=== PATIENT | female | born 2000 | race American Indian/Alaskan Native ===

== ENCOUNTER 2021-09-13 06:01 | Day surgery (SDC) | payer MEDICAID, OTHER ==
[~2021-09-13 06:01] MED LIST: LACTATED RINGERS 1,000 ML IV SCH; MIDAZOLAM 2 MG/2 ML INJ IV NR
--- NOTE | 2021-09-13 06:59 | Short Stay Summary ---
Short Stay Documentation Date of service: 09/13/21 Narrative H&P: Pt is a 20 year old G0 female who presents for treatment of hsil on colposcopy. Pt has a history of recently onset diabetes. - History Principal diagnosis: HSIL H&P: obtained from office Past Medical History: diabetes Social history: single - Allergies and Medications Current Medications: Allergies No Known Allergies Allergy (Unverified 09/09/21 07:39) Home Medications Medication Instructions Recorded Confirmed Last Taken Type metFORMIN [Glucophage] 850 mg PO DAILY 09/09/21 09/13/21 09/11/21 History Active Medications Lactated Ringer's (Lactated Ringers) 1,000 mls @ 100 mls/hr IV DIRECT EDVIN Stop: 09/13/21 23:59 Last Admin: 09/13/21 06:30 Dose: 100 mls/hr Documented by: Midazolam HCl (Midazolam 2 Mg/2 Ml Inj) 2 mg IV PREOP NR Stop: 09/13/21 23:59 - Physical exam General appearance: no acute distress Integumentary: no rash Lungs: Clear to auscultation, Normal air movement Breasts: deferred Heart: Regular rate, Normal S1, Normal S2 Gastrointestinal: normal, normoactive bowel sounds Female Genitourinary: deferred Rectal Exam: deferred Extremities: no ischemia - Brief post op/procedure progress note Date of procedure: 09/13/21 Pre-op diagnosis: High-grade cervical dysplasia Post-op diagnosis: same Procedure: Cold knife biopsy Anesthesia: MAC Findings: Small nulliparous cervix with areas of abnormality just adjacent to os at the 6:00 position Surgeon: DAIJA AMARAL Estimated blood loss: minimal Pathology: list (Cervical biopsy) Specimen disposition: to lab - Hospital course Hospital course: Unremarkable - Disposition Condition at discharge: Stable Disposition: 01 HOME / SELF CARE / HOMELESS Short Stay Discharge Plan Activity: advance as tolerated Weight Bearing Status: Weight Bear as Tolerated Diet: regular Follow up with: DEWEY ALEJANDRO MD [Primary Care Provider] - 7 Days DAIJA AMARAL MD [Staff Physician] - 14 Days Prescriptions: Ibuprofen [Motrin] 800 mg PO Q8HR PRN #30 tablet PRN Reason: Pain, Mild (1-3) HYDROcodone/APAP 5-325 [[place] 5/325] 2 each PO Q6H PRN #30 tablet PRN Reason: Pain
--- NOTE | 2021-09-13 07:32 | Anesthesia Consultation ---
Anesthesia Consult and Med Hx Date of service: 09/13/21 - Airway Anesthetic Teeth Evaluation: Good ROM Head & Neck: Adequate Mental/Hyoid Distance: Adequate Mallampati Class: Class I Intubation Access Assessment: Probably Good - Pre-Operative Health Status ASA Pre-Surgery Classification: ASA2 Proposed Anesthetic Plan: General - Pulmonary Hx Smoking: No Hx Respiratory Symptoms: No - Cardiovascular System Hx Hypertension: No - Central Nervous System CVA: No - Endocrine Hx Renal Disease: No Hx Liver Disease: No Hx Non-Insulin Dependent Diabetes: Yes Hx Thyroid Disease: No - Other Systems Hx Obesity: Yes - Additional Comments Anesthesia Medical History Comments: No hx anesthetic complications.
--- NOTE | 2021-09-13 07:33 | Anesthesia Day of Surgery ---
Anesthesia Day of Surgery - Day of Surgery Patient Examined: Yes Patient H&P Reviewed: Yes Patient is NPO: Yes
[2021-09-13] MEDS ORDERED: POTASSIUM IODIDE/IODINE (LUGOLS) 30 ML TP ONE ×2 (07:35→08:41)
[2021-09-13] MEDS ORDERED: FERRIC SUBSULFATE TOPICAL SOLN 8 ML TP ONE (07:36)
[2021-09-13] MEDS ORDERED: propofoL 200 MG/20 ML VIAL IV ONE (08:12)
[2021-09-13] MEDS ORDERED: fentaNYL 100 MCG/2 ML INJ ONE (08:17)
[2021-09-13] MEDS ORDERED: dexAMETHasone 20 MG/5 ML VIAL ONE (08:19)
[2021-09-13] MEDS ORDERED: LIDOCAINE MPF (2%) 20 MG/1 ML VIAL 5 ML ONE (08:19)
[2021-09-13] MEDS ORDERED: KETOROLAC 30 MG/1 ML INJ ONE (08:19)
[2021-09-13] MEDS ORDERED: ONDANSETRON 4 MG/2 ML INJ ONE (08:19)
[2021-09-13] MEDS ORDERED: SODIUM CHLORIDE 0.9% IRR 1,500 ML BOTTLE IR ONE (08:41)
[2021-09-13] MEDS ORDERED: HYDROmorphone 1 MG/1 ML INJ ONE (09:17)
[2021-09-13] MEDS ORDERED: ONDANSETRON 4 MG/2 ML INJ IV PRN (09:24)
[2021-09-13] MEDS: HYDROmorphone 1 MG/1 ML INJ IV PRN ×2 (09:29→09:44)
--- NOTE | 2021-09-13 09:33 | Operative Report ---
Operative Report Operative Report: Pre Op Diagnosis: High-grade intraepithelial dysplasia Post Op Diagnosis: Same Procedure: Cold knife biopsy Surgeon: Kayla Guy MD EBL: Minimal IVF: 800 cc Urine output: 150 clear to beginning the procedure Specimen: Cervical biopsy Complications: None Procedure: The patient returned to the OR with IV running and in place. She was given general anesthesia without difficulty. She was then placed in dorsolithotomy position and prepped and draped in normal sterile fashion. Her bladder was drained approximately 100 cc of clear yellow urine. Attention was then turned to the patient's vagina. A bivalve speculum placed in the vagina, the uterus was then identified and grasped with single-tooth tenaculum. Lugol's solution was then applied to the cervix. Areas of highlighted included the cervical os and a small area just at the 6 o'clock position. Cervix appeared to be nulliparous and was small. The wire devices were all too large to use on the cervix without causing significant damage therefore decision was made to do a knife biopsy using the scalpel. Sutures of 0 Vicryl were placed at the 3 and 9 o'clock position on the external os assist and hemostasis. A Sandra area was carried out of the central's using the 11 blade. An Allis was used to remove the actual portions of cervix that had been detached. These portions were then prepared to be sent to recovery. The base of the excision was then cauterized with the rollerball Bovie. There was excellent hemostasis at the end of this portion of the procedure. At this point all instruments the patient's vagina. She was then awakened and taken recovery in stable condition. The sponge and instrument counts were correct x2.
[2021-09-13] MEDS ORDERED: HYDROcodone/ACETAMINOPHEN 5-325 MG TAB PO PRN (10:17)
--- NOTE | 2021-09-13 10:17 | Post Anesthesia Evaluation ---
- Post Anesthesia Evaluation Patient Participated: Yes Airway Patent: Yes Stable Respiratory Function: Yes Nausea/Vomiting: No Temp > 96.8F: Yes Pain Manageable: Yes Adequeate Hydration: Yes Anesthesia Complications: No
[2021-09-13 12:59] VITALS: BP 142/92
== END 2021-09-13 13:28 | disposition home or self-care (01) ==
LOC: OR 06:01
PROVIDERS: ATTEND Obstetrics & Gynecology
DX: R87.613 High grade squamous intraepithelial lesion on cytologic smear of cervix (HGSIL) (principal); D06.0 Carcinoma in situ of endocervix; K21.9 Gastro-esophageal reflux disease without esophagitis; E66.9 Obesity, unspecified; E11.9 Type 2 diabetes mellitus without complications; Z87.440 Personal history of urinary (tract) infections; Z79.84 Long term (current) use of oral hypoglycemic drugs; Z79.899 Other long term (current) drug therapy; Z98.890 Other specified postprocedural states; Z20.822 Contact with and (suspected) exposure to COVID-19
CPT/HCPCS: 57520; 81025; 82962; 88305; 88342; J1100; J1170; J1885; J2250; J2405; J2704; J3010; J3490; J7120; U0003